=== PATIENT | female | born 2000 | race Caucasian/White ===

== ENCOUNTER 2022-11-19 12:27 | Emergency (ER) | payer MEDICAID, OTHER ==
[~2022-11-19] VITALS: Ht 167.6 cm; Wt 70.0 kg
[2022-11-19 12:43] VITALS: BP 117/71
[2022-11-19] MEDS ORDERED: KETOROLAC 30MG/ML VIAL IM ONE (16:00)
[2022-11-19 16:59] LABS: CLARITY URINE CLEAR (CLEAR); COLOR URINE YELLOW (YELLOW); KETONES URINE TRACE (NEGATIVE); LEUKOCYTE ESTERASE URINE TRACE (NEGATIVE); NITRITE URINE NEGATIVE (NEGATIVE); OCCULT BLOOD URINE NEGATIVE (NEGATIVE); PROTEIN URINE NEGATIVE (NEGATIVE); SPECIFIC GRAVITY URINE 1.024 (1.005-1.030); UROBILINOGEN URINE 0.2 E.U./dL (0.2-1.0)
[2022-11-19] MEDS ORDERED: IBUP-2029 MT (18:07)
== END 2022-11-19 18:36 | disposition home or self-care (01) ==
LOC: ER 12:27
DX: R10.2 Pelvic and perineal pain (principal)
CPT/HCPCS: 76830; 76856; 81003; 81025; 96372; 99285; J1885; Z7610